=== PATIENT | male | born 1930 | race Caucasian/White ===

== ENCOUNTER 2017-01-24 19:15 | Inpatient (IN) | payer MEDICARE ==
[2017-01-24] MEDS ORDERED: NITROGLYCERIN OINT 1 INCH/GM PACKET TOPICAL STA (19:41)
[2017-01-24] MEDS ORDERED: HEPARIN SODIUM,PORCINE 5,000 UNIT/ML 1 ML VIAL IV PRN (19:43)
[2017-01-24] MEDS ORDERED: HEPARIN SODIUM,PORCINE 5,000 UNIT/ML 1 ML VIAL IV ONE (19:43)
[2017-01-24] MEDS ORDERED: HEPARIN SODIUM,PORCINE/D5W PMX 25,000 UNIT in DEXTROSE/WATER 1 500ML.BAG IV SCH (19:45)
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
[2017-01-24] MEDS ORDERED: NITROGLYCERIN SL TABS 0.4 MG TAB SUBLINGUAL PRN (20:27)
[2017-01-24] MEDS ORDERED: MORPHINE SULFATE 2 MG/ML SYRINGE IVP PRN (20:27)
[2017-01-24 20:46] LABS: Creatine Kinase MB 0.8 ng/mL (0.0-2.4)
[2017-01-24 20:55] LABS: Troponin I 0.077 ng/mL (0.000-0.034)
[2017-01-24] MEDS ORDERED: MIRTAZAPINE 15 MG TAB PO SCH (21:00)
[2017-01-24] MEDS ORDERED: ALPRAZolam 0.25 MG TAB PO PRN (21:41)
[2017-01-24] MEDS ORDERED: ZOLPIDEM 5 MG TAB PO PRN (21:41)
[2017-01-24] MEDS ORDERED: ACETAMINOPHEN TAB 325 MG TAB PO PRN (21:41)
[2017-01-24] MEDS: METOPROLOL TARTRATE 50 MG TAB PO SCH (22:26)
[2017-01-24] MEDS: ATORVASTATIN 40 MG TAB PO SCH (22:27)
[2017-01-24] MEDS: clonazePAM 0.5 MG TAB PO SCH (22:27)
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
[2017-01-24] MEDS: NITROGLYCERIN OINT 1 INCH/GM PACKET TOPICAL SCH (23:57)
[2017-01-24] MEDS: hydrALAZINE HCL 50 MG TAB PO SCH (23:57)
[2017-01-25 02:15] LABS: Creatine Kinase MB 0.8 ng/mL (0.0-2.4)
[2017-01-25 02:28] LABS: Troponin I 0.09 ng/mL (0.000-0.034)
[2017-01-25] MEDS: NITROGLYCERIN OINT 1 INCH/GM PACKET TOPICAL SCH ×4 (06:31→23:37)
[2017-01-25] MEDS: NIFEdipine XL 90 MG TAB.ER.24 PO SCH (08:00)
[2017-01-25] MEDS: HYDROCHLOROTHIAZIDE 12.5 MG CAP PO SCH (08:00)
[2017-01-25] MEDS: ASPIRIN 325 MG TAB PO SCH (08:00)
[2017-01-25] MEDS: PANTOPRAZOLE 40 MG TABLET PO SCH (08:00)
[2017-01-25] MEDS: clonazePAM 0.5 MG TAB PO SCH ×2 (08:00→20:18)
[2017-01-25] MEDS: hydrALAZINE HCL 50 MG TAB PO SCH ×3 (08:00→23:37)
[2017-01-25] MEDS: METOPROLOL TARTRATE 50 MG TAB PO SCH ×2 (08:00→20:19)
[2017-01-25 08:19] LABS: Basophils # (A) 0.1 k/uL (0-0.2); Basophils % (A) 1 %; CH 29.3; CHCM 33.7; Eosinophils # (A) 0.3 k/uL (0-0.7); Eosinophils % (A) 4 %; HCT 30.6 % (39.0-53.0); HDW 2.28; HGB 10.3 gm/dL (13.0-17.5); Luc # (Auto) 0.12; Luc % (Auto) 2; Lymphocytes # (A) 1.3 k/uL (1.0-4.8); Lymphocytes % (A) 18 %; MCH 29.4 pg (25.0-35.0); MCHC 33.7 g/dL (31.0-37.0); MCV 87.3 fL (80.0-100.0); Monocytes # (A) 0.5 k/uL (0-1.0); Monocytes % (A) 7 %; Neutrophils # (A) 5.1 k/uL (1.3-7.7); Neutrophils % (A) 70 %; RBC 3.51 m/uL (4.30-5.90); RDW 14.2 % (11.5-15.5); WBC 7.3 k/uL (3.8-10.6); WBC (Perox) 7.78
[2017-01-25] MEDS ORDERED: ATORVASTATIN 10 MG TAB PO SCH (09:00)
[2017-01-25 09:06] LABS: Creatine Kinase MB 0.9 ng/mL (0.0-2.4)
[2017-01-25 09:14] LABS: Troponin I 0.08 ng/mL (0.000-0.034)
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
[2017-01-25 09:54] LABS: ALT 25 U/L (21-72); AST 20 U/L (17-59); Alkaline Phosphatase 42 U/L (38-126); Anion Gap 6 mmol/L; Blood Urea Nitrogen 18 mg/dL (9-20); Calcium 8.4 mg/dL (8.4-10.2); Carbon Dioxide 20 mmol/L (22-30); Chloride 113 mmol/L (98-107); Cholesterol 110 mg/dL (<200); Glucose 89 mg/dL (74-99); HDL Cholesterol 51 mg/dL (40-60); Non-African American GFR(MDRD) 52 (>60 ml/min/1.73 sqM); Phosphorous 3.7 mg/dL (2.5-4.5); Sodium 139 mmol/L (137-145); Total Bilirubin 0.3 mg/dL (0.2-1.3); Total Protein 5.4 g/dL (6.3-8.2)
[2017-01-25] MEDS: HYDROcodone/APAP 5-325MG 1 EACH TAB PO PRN ×2 (11:05→20:22)
--- NOTE | 2017-01-25 11:21 | P.PN ---
Subjective Patient is sleeping comfortably, denies any chest pain or shortness of air, definitely a language barrier however his and daughter to translate. Cardiac enzymes trended up and are now tapering off. Objective - Vital Signs Vital signs: Vital Signs Temp 96.7 F L 01/25/17 08:00 Pulse 59 L 01/25/17 08:00 Resp 16 01/25/17 08:00 BP 121/58 01/25/17 08:00 Pulse Ox 100 01/25/17 08:00 Intake & Output 01/24/17 01/25/17 01/25/17 18:59 06:59 18:59 Intake Total 178.194 Output Total 600 Balance -421.806 Weight 49.895 kg 49.4 kg Intake: IV 96 Heparin Sodium,Porcine/ 96 D5w Pmx 25,000 unit In Dextrose/Water 1 500ml. bag @ 12 UNITS/KG/HR 11. 97 mls/hr IV .Q24H [facility] Rx #:[id number] Intake, IV Titration 82.194 Amount Heparin Sodium,Porcine/ 82.194 D5w Pmx 25,000 unit In Dextrose/Water 1 500ml. bag @ 12 UNITS/KG/HR 11. 97 mls/hr IV .Q24H [facility] Rx #:[id number] Output: Urine 600 Other: Voiding Method Urinal # Voids 2 - Exam Constitutional: No acute distress, conversant, pleasant Eyes: Anicteric sclerae, moist conjunctiva, no lid-lag, PERRLA ENMT: NC/AT,Oropharynx clear, no erythema, exudates Neck:Supple, FROM, no masses, or JVD, No carotid bruits; No thyromegaly Lungs: Clear to auscultation, Clear to percussion, Normal respiratory effort, no accessory muscle use Cardiovascular: Heart regular in rate and rhythm, No murmurs, gallops, or rubs no peripheral edema Abdominal: Soft Nontender, nom distended, no guarding, no rebound or rigidity, Normoactive bowel sounds No hepatomegaly, No splenomegaly, No palpable mass No abdominal wall hernia noted Skin: Normal temperature, tone, texture, turgor, No induration No subcutaneous nodules, No rash, lesions, No ulcers Extremities:No digital cyanosis No clubbing, Pedal pulses intact and symmetrical Radial pulses intact and symmetrical Normal gait and station, No calf tenderness Psychiatric: Alert and oriented to person, place and time, Appropriate affect Intact judgement Neuro: Muscles Strength 5/5 in all 4 extremities, Sensation to light touch grossly present throughout, Cranial nerves II-XII grossly intact. No focal sensory deficits - Labs CBC & Chem 7: 01/25/17 08:01 01/25/17 08:01 Labs: Abnormal Lab Results - Last 24 Hours (Table) 01/24/17 01/25/17 01/25/17 Range/Units 19:51 01:23 01:23 RBC (4.30-5.90) m/uL Hgb (13.0-17.5) gm/dL Hct (39.0-53.0) % Plt Count (150-450) k/uL APTT 157.7 H* (22.0-30.0) sec Chloride (98-107) mmol/L Carbon Dioxide (22-30) mmol/L Creatinine (0.66-1.25) mg/dL Total Creatine Kinase 30 L 33 L (55-170) U/L Troponin I 0.077 H* 0.090 H* (0.000-0.034) ng/mL Total Protein (6.3-8.2) g/dL Albumin (3.5-5.0) g/dL 01/25/17 01/25/17 01/25/17 Range/Units 08:01 08:01 08:01 RBC 3.51 L (4.30-5.90) m/uL Hgb 10.3 L (13.0-17.5) gm/dL Hct 30.6 L (39.0-53.0) % Plt Count 142 L (150-450) k/uL APTT (22.0-30.0) sec Chloride 113 H (98-107) mmol/L Carbon Dioxide 20 L (22-30) mmol/L Creatinine 1.32 H (0.66-1.25) mg/dL Total Creatine Kinase 31 L (55-170) U/L Troponin I 0.080 H* (0.000-0.034) ng/mL Total Protein 5.4 L (6.3-8.2) g/dL Albumin 2.8 L (3.5-5.0) g/dL Assessment and Plan (1) Acute non-ST elevation myocardial infarction (NSTEMI) Narrative/Plan: Patient admitted with chest pain found to have a non-ST elevation [place] with cardiac enzymes tapering off .09 to .080, roll up helper being consulted appreciated recommendations regarding getting medical records from [place] to optimize plan of care for this patient * Agree with continuing aspirin, IV heparin, nitroglycerin, Toprol and statin therapy * We'll follow up echocardiogram results Status: Acute (2) Prolonged QT interval Status: Acute (3) Anxiety Status: Chronic (4) Essential hypertension Narrative/Plan: Blood pressure stable controlled continue current regimen Status: Chronic
--- NOTE | 2017-01-25 14:19 | ECHOF ---
Referral Reason:cp MEASUREMENTS -------- HEIGHT: 152.4 cm WEIGHT: 49.0 kg BP: IVSd: 0.9 cm (0.6 - 1.1) LVIDd: 3.0 cm (3.9 - 5.3) LVPWd: 1.2 cm (0.6 - 1.1) IVSs: 1.4 cm LVIDs: 2.2 cm LVPWs: 2.0 cm Ao Diam: 2.7 cm (2.0 - 3.7) AV Cusp: 1.5 cm (1.5 - 2.6) LA Diam: 2.9 cm (2.7 - 3.8) MV EXCURSION: 13.059 mm (> 18.000) MV EF SLOPE: 63 mm/s (70 - 150) EPSS: 0.6 cm MV E Emanuel: 0.85 m/s MV DecT: 312 ms MV A Emanuel: 1.04 m/s MV E/A Ratio: 0.82 AR PHT: 507 ms RAP: 5.00 mmHg RVSP: 24.35 mmHg FINDINGS -------- Sinus rhythm. This was a technically good study. The left ventricular size is normal. There is borderline concentric left ventricular hypertrophy. Overall left ventricular systolic function is normal with, an EF between 55 - 60 %. The right ventricle is normal in size and function. The left atrium is normal in size. The right atrium is normal in size. Aortic valve is trileaflet and is mildly thickened. There is mild aortic regurgitation. The mitral valve leaflets are mildly thickened. There is trace mitral regurgitation. Trace tricuspid regurgitation present. The right ventricular systolic pressure, as measured by Doppler, is 24.35mmHg. Pulmonic valve appears structurally normal. The aortic root size is normal. The pericardium is normal. CONCLUSIONS -------- 1. Sinus rhythm. 2. There is mild aortic regurgitation. 3. The mitral valve leaflets are mildly thickened. 4. There is trace mitral regurgitation. 5. Trace tricuspid regurgitation present. 6. The right ventricular systolic pressure, as measured by Doppler, is 24.35mmHg. 7. Pulmonic valve appears structurally normal. 8. The aortic root size is normal. 9. The pericardium is normal. 10. This was a technically good study. 11. The left ventricular size is normal. 12. There is borderline concentric left ventricular hypertrophy. 13. Overall left ventricular systolic function is normal with, an EF between 55 - 60 %. 14. The right ventricle is normal in size and function. 15. The left atrium is normal in size. 16. The right atrium is normal in size. 17. Aortic valve is trileaflet and is mildly thickened. INSURANCE SPECIALIST: Swapna Hatch RDCS
[2017-01-25] MEDS: ATORVASTATIN 40 MG TAB PO SCH (20:19)
[2017-01-25] MEDS ORDERED: ATORVASTATIN 40 MG TAB PO SCH (21:00)
[2017-01-26] MEDS: HYDROcodone/APAP 5-325MG 1 EACH TAB PO PRN ×2 (03:05→10:23)
[2017-01-26] MEDS: NITROGLYCERIN OINT 1 INCH/GM PACKET TOPICAL SCH (05:41)
[2017-01-26 06:20] LABS: Basophils % (A) 1 %; CH 29.1; CHCM 32.9; Eosinophils # (A) 0.2 k/uL (0-0.7); Eosinophils % (A) 3 %; HCT 30.3 % (39.0-53.0); HDW 2.28; Luc # (Auto) 0.16; Luc % (Auto) 2; Lymphocytes # (A) 0.9 k/uL (1.0-4.8); Lymphocytes % (A) 12 %; MCH 29.3 pg (25.0-35.0); MCV 88.8 fL (80.0-100.0); Monocytes # (A) 0.6 k/uL (0-1.0); Monocytes % (A) 7 %; Neutrophils % (A) 76 %; RBC 3.41 m/uL (4.30-5.90); RDW 14.7 % (11.5-15.5); WBC 7.9 k/uL (3.8-10.6); WBC (Perox) 7.95
[2017-01-26 06:36] LABS: Calcium 8.2 mg/dL (8.4-10.2); Potassium 4.2 mmol/L (3.5-5.1)
[2017-01-26] MEDS: hydrALAZINE HCL 50 MG TAB PO SCH (09:24)
[2017-01-26] MEDS: PANTOPRAZOLE 40 MG TABLET PO SCH (09:24)
[2017-01-26] MEDS: METOPROLOL TARTRATE 50 MG TAB PO SCH (09:24)
[2017-01-26] MEDS: ASPIRIN 325 MG TAB PO SCH (09:24)
[2017-01-26] MEDS: NIFEdipine XL 90 MG TAB.ER.24 PO SCH (09:24)
[2017-01-26] MEDS: HYDROCHLOROTHIAZIDE 12.5 MG CAP PO SCH (09:24)
[2017-01-26] MEDS: clonazePAM 0.5 MG TAB PO SCH (09:27)
[2017-01-26 09:38] VITALS: RESP 16; TEMP 98.2
[2017-01-26] MEDS ORDERED: ISOSORBIDE MONONITRATE ER 30 MG TAB.ER.24H PO SCH (10:30)
--- NOTE | 2017-01-26 11:16 | P.PN ---
Subjective Principal diagnosis: The patient presented with non-ST elevation ID, with initial EKG showing some possible non specific T wave abnormalities, follow-up EKGs have been normal. The patient was started on heparin and aspirin and metoprolol and statins. Review of his old records from [place], apparently the patient had a heart catheterization in 11/2014 with normal coronaries and his last echocardiogram in level of this year revealed a normal ejection fraction Patient is sleeping comfortably, denies any chest pain or shortness of air, definitely a language barrier however his and daughter to translate. Currently the patient was confused overnight Required some doses of Ativan and pain medication. Currently wanted to leave however his and daughter convinced him to stay. Patient has not been ambulating much other than that, Denies any chest pain or shortness of breath, having recurring left shoulder pain/neck child previously precipitated his chest pain Objective - Vital Signs Vital signs: Vital Signs Temp 98.2 F 01/26/17 08:00 Pulse 67 01/26/17 03:34 Resp 16 01/26/17 08:00 BP 131/59 01/26/17 08:00 Pulse Ox 97 01/26/17 08:00 Intake & Output 01/25/17 01/26/17 01/26/17 18:59 06:59 18:59 Intake Total 237 576 220 Output Total 300 1200 Balance -63 -624 220 Weight 49.4 kg 44 kg Intake: IV 96 Heparin Sodium,Porcine/ 96 D5w Pmx 25,000 unit In Dextrose/Water 1 500ml. bag @ 12 UNITS/KG/HR 11. 97 mls/hr IV .Q24H [facility] Rx #:[id number] Oral 237 480 220 Output: Urine 300 1200 Other: Voiding Method Urinal Urinal - Exam Constitutional: No acute distress, conversant, pleasant Eyes: Anicteric sclerae, moist conjunctiva, no lid-lag, PERRLA ENMT: NC/AT,Oropharynx clear, no erythema, exudates Neck:Supple, FROM, no masses, or JVD, No carotid bruits; No thyromegaly Lungs: Clear to auscultation, Clear to percussion, Normal respiratory effort, no accessory muscle use Cardiovascular: Heart regular in rate and rhythm, No murmurs, gallops, or rubs no peripheral edema Abdominal: Soft Nontender, nom distended, no guarding, no rebound or rigidity, Normoactive bowel sounds No hepatomegaly, No splenomegaly, No palpable mass No abdominal wall hernia noted Skin: Normal temperature, tone, texture, turgor, No induration No subcutaneous nodules, No rash, lesions, No ulcers Extremities:No digital cyanosis No clubbing, Pedal pulses intact and symmetrical Radial pulses intact and symmetrical Normal gait and station, No calf tenderness Psychiatric: Alert and oriented to person, place and time, Appropriate affect Intact judgement Neuro: Muscles Strength 5/5 in all 4 extremities, Sensation to light touch grossly present throughout, Cranial nerves II-XII grossly intact. No focal sensory deficits - Labs CBC & Chem 7: 01/26/17 05:57 01/26/17 05:57 Labs: Abnormal Lab Results - Last 24 Hours (Table) 01/25/17 01/26/17 01/26/17 Range/Units 10:41 05:57 05:57 RBC 3.41 L (4.30-5.90) m/uL Hgb 10.0 L (13.0-17.5) gm/dL Hct 30.3 L (39.0-53.0) % Plt Count 136 L (150-450) k/uL Lymphocytes # 0.9 L (1.0-4.8) k/uL APTT 50.7 H (22.0-30.0) sec Chloride 111 H (98-107) mmol/L Carbon Dioxide 18 L (22-30) mmol/L Creatinine 1.47 H (0.66-1.25) mg/dL Calcium 8.2 L (8.4-10.2) mg/dL 01/26/17 Range/Units 05:57 RBC (4.30-5.90) m/uL Hgb (13.0-17.5) gm/dL Hct (39.0-53.0) % Plt Count (150-450) k/uL Lymphocytes # (1.0-4.8) k/uL APTT 62.1 H (22.0-30.0) sec Chloride (98-107) mmol/L Carbon Dioxide (22-30) mmol/L Creatinine (0.66-1.25) mg/dL Calcium (8.4-10.2) mg/dL Assessment and Plan (1) Acute non-ST elevation myocardial infarction (NSTEMI) Narrative/Plan: Patient admitted with chest pain found to have a non-ST elevation ID with cardiac enzymes tapering off .09 to .080, special agent in charge being consulted appreciated recommendations regarding getting medical records from [place] to optimize plan of care for this patient * Agree with continuing aspirin, IV heparin, nitroglycerin, Toprol and statin therapy * Echocardiogram done yesterday showing preserved ejection fraction of 55-60% and is essentially unchanged from his previous echocardiogram done in August. * Awaiting cardiology recommendations whether or not to proceed with catheterization Status: Acute (2) Prolonged QT interval (3) Anxiety Status: Chronic (4) Essential hypertension Status: Chronic
--- NOTE | 2017-01-26 11:19 | P.PN ---
Subjective Principal diagnosis: Chest pain This is an 86-year-old gentleman with history of hypertension, hyperlipidemia, coronary artery disease, admitted to the hospital with symptoms of chest pain. He was seen in consultation by Dr. Rahman. Upon review of the patient's old records, he did undergo cardiac catheterization in 2015 which did not reveal any obstructive coronary artery disease. Patient was noted to have mild troponin abnormality as well as inferior lateral ST-T wave changes. Upon review of prior EKG the inferior lateral ST-T wave changes were present prior as well. Echo revealed an ejection fraction of 55-60%. At this time we will continue maximum medical therapy. Patient may be able to be discharged from cardiology's perspective. Objective - Vital Signs Vital signs: Vital Signs Temp 98.2 F 01/26/17 08:00 Pulse 67 01/26/17 03:34 Resp 16 01/26/17 08:00 BP 131/59 01/26/17 08:00 Pulse Ox 97 01/26/17 08:00 Intake & Output 01/25/17 01/26/17 01/26/17 18:59 06:59 18:59 Intake Total 237 576 220 Output Total 300 1200 Balance -63 -624 220 Weight 49.4 kg 44 kg Intake: IV 96 Heparin Sodium,Porcine/ 96 D5w Pmx 25,000 unit In Dextrose/Water 1 500ml. bag @ 12 UNITS/KG/HR 11. 97 mls/hr IV .Q24H [facility] Rx #:[id number] Oral 237 480 220 Output: Urine 300 1200 Other: Voiding Method Urinal Urinal - Exam PHYSICAL EXAMINATION: HEENT: Head is atraumatic, normocephalic. Pupils equal, round. Neck is supple. There is no elevated jugular venous pressure. HEART EXAMINATION: Heart S1, S2 normal. No murmur or gallop heard. CHEST EXAMINATION: Lungs are clear to auscultation and precussion. No chest wall tenderness is noted on palpation or with deep breathing. ABDOMEN: Soft, nontender. Bowel sounds are heard. No organomegaly noted. EXTREMITIES: 2+ peripheral pulses with no evidence of peripheral edema and no calf tenderness noted. NEUROLOGIC patient is awake, alert and oriented -2. . - Labs CBC & Chem 7: 01/26/17 05:57 01/26/17 05:57 Labs: Abnormal Lab Results - Last 24 Hours (Table) 01/25/17 01/26/17 01/26/17 Range/Units 10:41 05:57 05:57 RBC 3.41 L (4.30-5.90) m/uL Hgb 10.0 L (13.0-17.5) gm/dL Hct 30.3 L (39.0-53.0) % Plt Count 136 L (150-450) k/uL Lymphocytes # 0.9 L (1.0-4.8) k/uL APTT 50.7 H (22.0-30.0) sec Chloride 111 H (98-107) mmol/L Carbon Dioxide 18 L (22-30) mmol/L Creatinine 1.47 H (0.66-1.25) mg/dL Calcium 8.2 L (8.4-10.2) mg/dL 01/26/17 Range/Units 05:57 RBC (4.30-5.90) m/uL Hgb (13.0-17.5) gm/dL Hct (39.0-53.0) % Plt Count (150-450) k/uL Lymphocytes # (1.0-4.8) k/uL APTT 62.1 H (22.0-30.0) sec Chloride (98-107) mmol/L Carbon Dioxide (22-30) mmol/L Creatinine (0.66-1.25) mg/dL Calcium (8.4-10.2) mg/dL Assessment and Plan (1) Non-STEMI (non-ST elevated myocardial infarction) Status: Acute (2) Anxiety Status: Chronic (3) Essential hypertension Status: Chronic Plan: From cardiology's perspective, we'll continue current maximal medical therapy. Patient may be able to be discharged from our perspective once cleared by the primary. DNP note has been reviewed, I agree with a documented findings and plan of care. Patient was seen and examined.
[2017-01-26 11:32] VITALS: BMI 18.9
[2017-01-26 12:23] VITALS: BP 136/62; PULSE 56
--- NOTE | 2017-01-26 14:35 | P.DS ---
Providers Date of admission: 01/24/17 20:27 Expected date of discharge: 01/26/17 Attending physician: Afua Manrique MD Consults: 01/24/17 20:27 Consult Physician Urgent Consulting Provider: Joss Warren Consult Reason/Comments: NSTEMI Do you want consulting provider notified?: Yes Primary care physician: Physician Nonstaff - Discharge Diagnosis(es) (1) Acute non-ST elevation myocardial infarction (NSTEMI) Current Visit: Yes Status: Acute (2) Prolonged QT interval Current Visit: Yes (3) Anxiety Current Visit: Yes Status: Chronic (4) Essential hypertension Current Visit: Yes Status: Chronic Hospital Course: Patient is a 86-year-old male present with chest pain with initial EKG suggesting inferior lateral ST T wave changes suggestive of Ischemia with elevated serum troponins. Start on protocol for non-ST elevation [place], which included heparin drip, aspirin, metoprolol, and statin therapy Cardiology Dr. Rahman was consulted, and records was obtained from [place] were noted. The patient had had a cardiac catheterization in 11/2014 that revealed normal coronaries and a cardiogram with normal EF. Echocardiogram done here revealed normal ejection fraction as well of 55-60%. Cardiology subsequently recommended aggressive medical management and the patient was discharged home in stable condition with new prescriptions for Aspirin 325 mg PO daily and SL Nitroglycerin PRN, he was instructed to continue his statins, beta blockers and his other medications. This discharge process took approximately 25 minutes Pertinent Studies: 2-D echocardiogram with normal ejection fraction Patient Condition at Discharge: Fair Plan - Discharge Summary New Discharge Prescriptions: New Aspirin 325 mg PO DAILY #30 tab Nitroglycerin Sl Tabs [Nitrostat] 0.4 mg SUBLINGUAL Q5M PRN #60 tab PRN Reason: Chest Pain Continue hydrALAZINE HCL [Apresoline] 100 mg PO Q8H clonazePAM [KlonoPIN] 0.5 mg PO BID NIFEdipine [NIFEdipine ER] 90 mg PO DAILY Mirtazapine [Remeron] 30 mg PO HS Metoprolol Tartrate [Lopressor] 50 mg PO BID Isosorbide Mononitrate ER [Imdur] 30 mg PO DAILY Hydrochlorothiazide [Hydrodiuril] 12.5 mg PO DAILY Cyanocobalamin [Vitamin B-12 Injection] 1,000 mcg SQ Q42D Atorvastatin [Lipitor] 10 mg PO DAILY HYDROcodone/APAP 5-325MG [[place] 5-325] 1 tab PO Q6H PRN PRN Reason: Pain Pantoprazole [Protonix] 40 mg PO DAILY Discharge Medication List Atorvastatin [Lipitor] 10 mg PO DAILY 01/24/17 [History] Cyanocobalamin [Vitamin B-12 Injection] 1,000 mcg SQ Q42D 01/24/17 [History] HYDROcodone/APAP 5-325MG [[place] 5-325] 1 tab PO Q6H PRN 01/24/17 [History] Hydrochlorothiazide [Hydrodiuril] 12.5 mg PO DAILY 01/24/17 [History] Isosorbide Mononitrate ER [Imdur] 30 mg PO DAILY 01/24/17 [History] Metoprolol Tartrate [Lopressor] 50 mg PO BID 01/24/17 [History] Mirtazapine [Remeron] 30 mg PO HS 01/24/17 [History] NIFEdipine [NIFEdipine ER] 90 mg PO DAILY 01/24/17 [History] Pantoprazole [Protonix] 40 mg PO DAILY 01/24/17 [History] clonazePAM [KlonoPIN] 0.5 mg PO BID 01/24/17 [History] hydrALAZINE HCL [Apresoline] 100 mg PO Q8H 01/24/17 [History] Aspirin 325 mg PO DAILY #30 tab 01/26/17 [Rx] Nitroglycerin Sl Tabs [Nitrostat] 0.4 mg SUBLINGUAL Q5M PRN #60 tab 01/26/17 [Rx ] Follow up Appointment(s)/Referral(s): Jaime Cabrera MD [REFERRING] - 02/04/17 2:15 pm [facility], [NON-STAFF] - Discharge Disposition: HOME SELF-CARE
== END 2017-01-26 16:44 | disposition home health service (06) | DRG 282 ==
LOC: EC 19:15 → 6SEL 20:27
PROVIDERS: ADMIT Internal Medicine; ATTEND Internal Medicine
DX: I21.4 Non-ST elevation (NSTEMI) myocardial infarction (principal); F03.90 Unspecified dementia, unspecified severity, without behavioral disturbance, psychotic disturbance, mood disturbance, and anxiety; I45.81 Long QT syndrome; E78.5 Hyperlipidemia, unspecified; F41.9 Anxiety disorder, unspecified; I10 Essential (primary) hypertension; I25.10 Atherosclerotic heart disease of native coronary artery without angina pectoris; F32.9 Major depressive disorder, single episode, unspecified; Z79.899 Other long term (current) drug therapy; Z87.891 Personal history of nicotine dependence; Z88.0 Allergy status to penicillin; Z82.49 Family history of ischemic heart disease and other diseases of the circulatory system
CPT/HCPCS: 36415; 80048; 80053; 80061; 82550; 82553; 83735; 84100; 84484; 85025; 85730; 93005; 93306; 99285